=== PATIENT | female | born 1960 | race Caucasian/White ===

== ENCOUNTER 2016-12-17 10:10 | Day surgery (SDC) | payer OTHER, SELFPAY ==
[~2016-12-17] VITALS: Ht 170.2 cm; Wt 81.8 kg
--- NOTE | ~2016-12-17 | HP ---
PATIENT'S NAME: VALENTIN MOSHER [facility] AGE: 56 Y [address] ROOM: [place] [address] LOCATION: [facility] ADMIT DATE: 12/17/2016 History & Physical DISCHARGE DATE: FAMILY PHYSICIAN: Salvatore Hutchinson ATTENDING PHYSICIAN: Eugene Daniel DATE OF SERVICE: 12/17/2016 CHIEF COMPLAINT: Neck pain. HISTORY OF PRESENT ILLNESS: Maria Luz is a 56-year-old white female who was admitted to the care of Dr. Eugene Daniel, spine surgeon, today at [facility] on 12/17/2016. When I see her, she has undergone a successful anterior cervical diskectomy per Dr. Daniel. I have been asked to follow her because of her history of asthma and for postop pain management. CURRENT MEDICATIONS: 1. Albuterol nebulized treatments as needed. 2. Breo inhaler 1 puff daily. 3. Celexa 40 mg a day. 4. Flonase nasal spray as needed. 5. Gabapentin 100 mg at night. 6. Prilosec 20 mg a day. 7. Prednisone recently with a taper. 8. ProAir 2 puffs as needed. 9. Singulair 10 mg at night. 10. Zyrtec. ALLERGIES: AMITRIPTYLINE CAUSES SEDATION. PREVIOUS OPERATIONS: Status post hysterectomy with EGD and colonoscopy in 1979. FAMILY HISTORY: Negative for problems with bleeding disorder or general anesthesia. SOCIAL HISTORY: Does not smoke. No alcohol use. REVIEW OF SYSTEMS: Positive for GERD, peptic ulcer disease, migraine headaches, asthma, depression, allergic rhinitis, and previous problems with hemorrhoids. PATIENT'S NAME: VALENTIN MOSHER [facility] AGE: 56 Y [address] ROOM: [place] [address] LOCATION: [facility] ADMIT DATE: 12/17/2016 History & Physical DISCHARGE DATE: FAMILY PHYSICIAN: Salvatore Hutchinson ATTENDING PHYSICIAN: Eugene Daniel PHYSICAL EXAMINATION: GENERAL: A dark haired female in a neck collar. Somewhat uncomfortable when she is up to the bathroom. She is oriented to person, place, and time. Cognition is consistent with postop status. HEENT: Benign. Pupils react to light. TMs not visualized. Posterior pharynx is clear. NECK: Unremarkable. LUNGS: Clear. HEART: No murmur. Regular rhythm. BREASTS: Not done. ABDOMEN: Soft without point tenderness or mass. PELVIC AND RECTAL: Not done. EXTREMITIES: Pulses full throughout. NEUROLOGIC: Grossly intact. Cranial nerves intact. Mental status as mentioned normal. Mood appears to be normal. ASSESSMENT: 1. Neck pain. 2. Status post anterior cervical discectomy. See Dr. Daniel's note. 3. History of hemorrhoids treated in the past. 4. History of gastroesophageal reflux disease. 5. History of migraine headaches. 6. Asthma. 7. Depression, major in remission. 8. Status post hysterectomy. 9. Status post hemorrhoidectomy. 10. Allergy to amitriptyline causing sedation. PLAN: Follow daily. Further changes indicated. MD TINA WILEY/modl /[id number] D: [id number] T: [id number] HISTORY & PHYSICAL
--- NOTE | ~2016-12-17 | OR ---
PATIENT'S NAME: NOMI [facility] AGE: 56 Y [address] ROOM: [place] [address] LOCATION: [facility] ADMIT DATE: 12/17/2016 OR/Procedure Report DISCHARGE DATE: FAMILY PHYSICIAN: Salvatore Hutchinson ATTENDING PHYSICIAN: Eugene Daniel SURGEON: Eugene Daniel MD FAILURE ANALYSIS ENGINEER: DATE OF PROCEDURE: 12/17/2016 PREOPERATIVE DIAGNOSES: 1. Cervical degenerative disk disease. 2. Cervical stenosis. 3. Cervical radiculopathy. 4. Neck pain. POSTOPERATIVE DIAGNOSES: 1. Cervical degenerative disk disease. 2. Cervical stenosis. 3. Cervical radiculopathy. 4. Neck pain. PROCEDURE PERFORMED: 1. Anterior cervical diskectomy and decompression, C3-C4 interspace. 2. Anterior cervical diskectomy and decompression, C4-C5 interspace. 3. Anterior cervical diskectomy and decompression, C5-C6 interspace. 4. Anterior cervical fusion, C3-C4 interspace. 5. Anterior cervical fusion, C4-C5 interspace. 6. Anterior cervical fusion, C5-C6 interspace. 7. Application of allograft structural bone, C3-C4 interspace. 8. Application of allograft structural bone, C4-C5 interspace. 9. Application of allograft structural bone, C5-C6 interspace. 10. Application of anterior plate screw construct fixation 3 disk spaces for vertebral segments, C3 to C6. TEMPLATE WORKER: DEE DEE Tan ANESTHESIA: General. ESTIMATED BLOOD LOSS: 25 mL. COMPLICATIONS: None. SPECIMENS: None. FINDINGS: Severe degenerative collapse of the disk space with spondylosis and PATIENT'S NAME: NOMI [facility] AGE: 56 Y [address] ROOM: [address] [address] LOCATION: [facility] ADMIT DATE: 12/17/2016 OR/Procedure Report DISCHARGE DATE: FAMILY PHYSICIAN: Salvatore Hutchinson ATTENDING PHYSICIAN: Eugene Daniel severe stenosis. INSTRUMENTATION USED: [employer] Tempus anterior cervical plate and [employer] cortical cancellous allograft bone. OPERATIVE INDICATIONS: The patient is a 56-year-old female whom I have followed for symptomatic cervical spine disease. She had failed conservative treatment and was offered surgery in the form of anterior cervical diskectomy and fusion. After details, risks, benefits, and options were explained, she freely consented to surgery. OPERATIVE NARRATIVE: After the patient was correctly identified and operative site initialed, she was taken back to the operating room, placed in a supine position. After anesthesia was induced, she was placed in the [facility] traction tong and the neck was prepped and draped in the usual sterile fashion. A time-out was taken to verify the patient and procedure. She received IV antibiotics prior to surgery, and the neck was prepped and draped in the usual sterile fashion. 10 mL of 0.25% Marcaine with epinephrine was injected in line with the proposed incision. A transverse incision was made in Mary lines on the left side of the neck over the operative levels. Dissection was taken down through subcutaneous tissue with electrocautery. The platysma was opened in line with the incision as was the pretracheal layer of deep cervical fascia. Blunt dissection brought us down onto the anterior margin of the spine. The prevertebral fascia was opened in midline and then it was dissected laterally and the longus colli were elevated on each side. Self-retaining retractors were placed onto the medial border. A bend spinal needle was placed in the disk space and verified at C3-C4. The disks were incised at all levels and the anterior osteophytes were smoothed along with a Leksell rongeur. The overhanging osteophytes of the cranial vertebral endplate were resected with a Kerrison. Disk was debrided using pituitaries, curettes, and Kerrisons back to the posterior ligament. A high-speed mitchel was used to take down the posterior osteophytes. A fine 1-mm tipped Kerrison was used to release the ligamentum flavum and decompress the cord and the nerve roots bilaterally. The wound was irrigated and dried. The endplates were rasped and then denuded of their cartilage and prepared for fusion. Bone graft was impacted at each level and recessed below the anterior vertebral margin. The weights were removed. A three-level plate was held in position and 16 mm variable screws were placed in the C3, C4, C5, and C6 through the plate. All screws had good purchase and they were locked to the plate. Final AP and lateral x-rays demonstrated good placement of the bone graft and plate- screw construct fixation. The wound was irrigated and dried. There was no bleeding. It was repaired in layers with 2-0 Vicryl on the platysma and 4-0 Monocryl on the skin. Sterile dressing was applied, and the patient was awakened from anesthesia and taken to the recovery room in stable condition. PATIENT'S NAME: VALENTIN MOSHER [facility] AGE: 56 Y [address] ROOM: [place] [address] LOCATION: [facility] ADMIT DATE: 12/17/2016 OR/Procedure Report DISCHARGE DATE: FAMILY PHYSICIAN: Salvatore Hutchinson ATTENDING PHYSICIAN: Eugene Daniel A surgical attendant was necessary in this procedure for evacuation of blood during decompression and assistance with placement of the bone graft for fusion and plate-screw construct fixation for stabilization. MD BALAJI KRUEGER/arelis /[id number] d: 12/17/161956 t: 12/30/16 1051, OPERATIVE SUMMARY
[~2016-12-17 10:10] MED LIST: BREO ELLIPTA 21 EACH INH; CELEXA40 MG PO; PROAIR HFA8.5 GM INH; PROVENTIL OR V6.7 GM INH; SINGULAIR10 MG PO; ZYRTEC10 MG PO
[2016-12-17 11:10] LABS: PROTIME 10.7 SECONDS (9.6-11.1)
--- NOTE | 2016-12-17 17:00 | NUR ---
Significant Event: PT ARRIVED ON FLOOR AT 1615. POST OP VITALS CONT 3RD HALF HOUR AT 1830. PT HAS DRESSING TO RT SIDE OF NECK STATES THROAT IS RHETT. TOOL NORCO LAST AT 1500. WILL REDOSE AT 1800. NO VOID SINCE ARRIVING. HAS NOT BEEN OUT OF BED YET AT 1700. FAMILY IN THE ROOM. IV FLUIDS INFUSING. 02 DECREASED TO 1 LPM/NC. Follow up:
--- NOTE | 2016-12-18 05:16 | NUR ---
Significant Event: Dressing is clean, dry and intact. CSM WNL. Rigid collar on when up. IV Dilaudid at 0507 and Soma at 0508. Peck at 0231. On room. Reglan at 0337. 1 assist with transfers. Voids without difficulty. Family at bedside. Follow up:
--- NOTE | 2016-12-18 06:56 | NUR ---
[id number] Supervised [facility] Recreation Attendant.
[2016-12-18] MEDS ORDERED: PERCOCET 10-321 EACH PO (13:04)
[2016-12-18] MEDS ORDERED: SOMA350 MG PO (13:06)
--- NOTE | 2016-12-18 14:14 | NUR ---
PT GIVEN DISCHARGE INSTRUCTIONS AND VOICES UNDERSTANDING. MEDICATIONS AND DRESSINGS DISCUSSED WITH OT. SHOWER GUARDS SENT HOME WITH PT. FAMILY TO ESCORT PT HOME. ESCORTED TO THE FRONT DOOR BY PARTH
== END 2016-12-18 14:10 | disposition disaster alternative care site (69) ==
LOC: GSDC 10:10 → G3N 10:10 → GSDC 15:00 → G3N 16:20 → GSDC 12-18 14:10
PROVIDERS: Orthopaedic Surgery Orthopaedic Surgery of the Spine
PROC: 0RG20K0 Fusion of 2 or more Cervical Vertebral Joints with Nonautologous Tissue Substitute, Anterior Approach, Anterior Column, Open Approach (ICD-10-PCS; principal; 2016-12-17)
PROC: 0RT30ZZ Resection of Cervical Vertebral Disc, Open Approach (ICD-10-PCS; 2016-12-17)
DX: M50.11 Cervical disc disorder with radiculopathy, high cervical region (principal); M48.02 Spinal stenosis, cervical region; G43.909 Migraine, unspecified, not intractable, without status migrainosus; K21.9 Gastro-esophageal reflux disease without esophagitis; Z79.899 Other long term (current) drug therapy; J45.909 Unspecified asthma, uncomplicated; F32.9 Major depressive disorder, single episode, unspecified; Z90.710 Acquired absence of both cervix and uterus; Z79.51 Long term (current) use of inhaled steroids; Z79.2 Long term (current) use of antibiotics
CPT/HCPCS: C1713; G0008; J0131; J0690; J1100; J1170; J2001; J2250; J2405; J2550; J2765; J3010; J3360; J3480; J7120